=== PATIENT | female | born 1970 | race African-American/Black ===

== ENCOUNTER → 2018-05-03 | Outpatient (CLI) | payer BC ==
[~2018-05-03] MED LIST: ZOCOR20 MG PO
== END ==
LOC: ULTRA 12:16
DX: R10.11 Right upper quadrant pain (principal)

== ENCOUNTER → 2020-11-16 | Outpatient (CLI) | payer BC | LOC: RAD 11:53 | PROVIDERS: ATTEND Nurse Practitioner | DX: M25.552 Pain in left hip (principal); M54.50 Low back pain, unspecified ==